=== PATIENT | male | born 1965 | race Caucasian/White ===

== ENCOUNTER 2017-08-28 20:55 | Emergency (ER) | payer BC ==
[~2017-08-28] VITALS: Ht 175.3 cm; Wt 87.5 kg
[2017-08-28 21:13] VITALS: BP 156/88
== END 2017-08-28 22:44 | disposition home or self-care (01) ==
LOC: EME 20:55
DX: S63.91XA Sprain of unspecified part of right wrist and hand, initial encounter (principal); W22.01XA Walked into wall, initial encounter; Y93.22 Activity, ice hockey; Z87.891 Personal history of nicotine dependence
CPT/HCPCS: 73130; 99281; 99283

== ENCOUNTER 2017-10-24 14:45 | Emergency (ER) | payer BC ==
[~2017-10-24] VITALS: Ht 175.3 cm; Wt 84.5 kg
[2017-10-24] MEDS ORDERED: PERCOCET 5/31 TABLET PO (20:11)
[2017-10-24 20:27] VITALS: BP 132/81
== END 2017-10-24 20:54 | disposition home or self-care (01) ==
LOC: EME 14:45
DX: S82.392A Other fracture of lower end of left tibia, initial encounter for closed fracture (principal); S82.832A Other fracture of upper and lower end of left fibula, initial encounter for closed fracture; X50.1XXA Overexertion from prolonged static or awkward postures, initial encounter; Y93.22 Activity, ice hockey; Z87.891 Personal history of nicotine dependence
CPT/HCPCS: 73560; 73590; 73600; 99281; 99285; J1170; J2270; J2405